=== PATIENT | female | born 1970 | race Caucasian/White ===

== ENCOUNTER 2017-08-05 19:53 | Emergency (ER) | payer OTHER ==
[2017-08-05 20:24] LABS: Appearance,Urine Clear (Clear); Bilirubin,Urine Negative (Negative); Blood,Urine Negative (Negative); Color,Urine Yellow; Glucose,Urine (UA) Negative (Negative); Ketones,Urine 3+ (Negative); Leukocyte Esterase,Urine Negative (Negative); Nitrite,Urine Negative (Negative); PH, Urine 6.5 (5.0-8.0); Protein,Urine Negative (Negative); Specific Gravity,Urine 1.016 (1.001-1.035); Urobilinogen,Urine <2.0 mg/dL (<2.0)
[2017-08-05] MEDS ORDERED: SODIUM CHLORIDE 0.9% 1,000 ML IV STA (20:28)
[2017-08-05] MEDS ORDERED: ONDANSETRON 4 MG/2 ML VIAL IVP STA (20:28)
[2017-08-05] MEDS ORDERED: DICYCLOMINE 10 MG/ML 2 ML AMP IM STA (20:28)
--- NOTE | 2017-08-05 20:34 | ED ---
Abdominal Pain HPI - General Chief Complaint: Abdominal Pain Stated Complaint: Abd pain Time Seen by Provider: 08/05/17 20:09 Source: patient Mode of arrival: ambulatory Limitations: no limitations - History of Present Illness Initial Comments: 47-year-old female patient presents to the emergency department today for evaluation of generalized abdominal pain and nausea. Patient states that the pain starts as a sharp cramp in her upper abdomen and spread downward. Patient states this started this morning when she woke from sleep. States that she did have one episode of vomiting around 9:00 in the morning. States that she has not had an appetite throughout the rest of the day. She denies any constipation or diarrhea. Denies any hematuria, dysuria, urinary frequency, or urinary urgency. She denies any hematemesis, hematochezia, or melena. Patient denies any ingestion of questionable foods. Denies recent travel or sick contacts. She denies any fever or chills. Patient denies any recent rash, shortness breath, chest pain, back pain, numbness, tingling, dizziness, weakness , headache, visual changes, or any other complaints. Patient did have her appendix out as a child. - Related Data Home Medications Medication Instructions Recorded Confirmed Bismuth Subsalicylate 524 mg PO ONCE PRN 08/05/17 08/05/17 [Pepto-Bismol] Kaopectate Liquid 1 dose PO ONCE PRN 08/05/17 08/05/17 Previous Rx's Medication Instructions Recorded Ondansetron [Zofran ODT] 4 mg PO Q8HR PRN #10 tab 08/05/17 Allergies Allergy/AdvReac Type Severity Reaction Status Date / Time Penicillins Allergy Unknown Verified 08/05/17 20:11 Sulfa (Sulfonamide Allergy Rash/Hives Verified 08/05/17 20:11 Antibiotics) Review of Systems ROS Statement: Those systems with pertinent positive or pertinent negative responses have been documented in the HPI. ROS Other: All systems not noted in ROS Statement are negative. Past Medical History Past Medical History: No Reported History History of Any Multi-Drug Resistant Organisms: None Reported Past Surgical History: No Surgical Hx Reported Past Psychological History: No Psychological Hx Reported Smoking Status: Current every day smoker Past Alcohol Use History: None Reported Past Drug Use History: None Reported General Exam Limitations: no limitations General appearance: alert, in no apparent distress, other (This is a well- developed, well-nourished adult female patient in no acute distress. Vital signs upon presentation are temperature 97.6F, pulse 69, respirations 18, blood pressure 133/72, pulse ox 99% on room air.) Eye exam: Present: normal appearance, PERRL, EOMI. Absent: scleral icterus, conjunctival injection, periorbital swelling ENT exam: Present: normal exam, normal oropharynx, mucous membranes moist Respiratory exam: Present: normal lung sounds bilaterally. Absent: respiratory distress, wheezes, rales, rhonchi, stridor Cardiovascular Exam: Present: regular rate, normal rhythm, normal heart sounds. Absent: systolic murmur, diastolic murmur, rubs, gallop, clicks GI/Abdominal exam: Present: soft, tenderness (lower abdominal tenderness), normal bowel sounds. Absent: distended, guarding, rebound, rigid Neurological exam: Present: alert, oriented X3, CN II-XII intact Psychiatric exam: Present: normal affect, normal mood Skin exam: Present: warm, dry, intact, normal color. Absent: rash Course Vital Signs 08/05/17 19:58 Temperature 97.6 F Pulse Rate 69 Respiratory 18 Rate Blood Pressure 133/72 O2 Sat by Pulse 99 Oximetry Medical Decision Making - Medical Decision Making 47-year-old female patient presented to the emergency department today for evaluation of generalized crampy abdominal pain. Physical examination was relatively unremarkable. Patient had some mild nonspecific generalized tenderness. Labs reviewed and are unremarkable. X-ray did show moderate stool burden extending throughout the colon down into the rectum. I did discuss findings and results with the patient. We did discuss constipation as a possible cause for her pain however we did discuss return parameters and red flag symptoms to be alert for. Patient be given a dose of magnesium citrate here. She'll be given Zofran for nausea. She is instructed to follow-up with her primary care physician for recheck in 1-2 days. Return parameters discussed in detail. She verbalizes understanding and agrees with this plan. - Lab Data Result diagrams: 08/05/17 20:50 08/05/17 20:50 Lab Results 08/05/17 08/05/17 08/05/17 Range/Units 20:05 20:50 20:50 WBC 8.9 (3.8-10.6) k/uL RBC 4.80 (3.80-5.40) m/uL Hgb 14.6 (11.4-16.0) gm/dL Hct 42.6 (34.0-46.0) % MCV 88.7 (80.0-100.0) fL MCH 30.5 (25.0-35.0) pg MCHC 34.4 (31.0-37.0) g/dL RDW 12.6 (11.5-15.5) % Plt Count 253 (150-450) k/uL Neutrophils % 80 % Lymphocytes % 14 % Monocytes % 3 % Eosinophils % 1 % Basophils % 0 % Neutrophils # 7.1 (1.3-7.7) k/uL Lymphocytes # 1.3 (1.0-4.8) k/uL Monocytes # 0.2 (0-1.0) k/uL Eosinophils # 0.1 (0-0.7) k/uL Basophils # 0.0 (0-0.2) k/uL Sodium 138 (137-145) mmol/L Potassium 4.3 (3.5-5.1) mmol/L Chloride 104 (98-107) mmol/L Carbon Dioxide 22 (22-30) mmol/L Anion Gap 12 mmol/L BUN 12 (7-17) mg/dL Creatinine 0.46 L (0.52-1.04) mg/dL Est GFR (CKD-EPI)AfAm >90 (>60 ml/min/1.73 sqM) Est GFR (CKD-EPI)NonAf >90 (>60 ml/min/1.73 sqM) Glucose 109 H (74-99) mg/dL Calcium 9.1 (8.4-10.2) mg/dL Total Bilirubin 0.7 (0.2-1.3) mg/dL AST 28 (14-36) U/L ALT 28 (9-52) U/L Alkaline Phosphatase 52 (38-126) U/L Total Protein 7.2 (6.3-8.2) g/dL Albumin 4.3 (3.5-5.0) g/dL Amylase 63 (30-110) U/L Lipase 70 (23-300) U/L Urine Color Yellow Urine Appearance Clear (Clear) Urine pH 6.5 (5.0-8.0) Ur Specific Carlotta 1.016 (1.001-1.035) Urine Protein Negative (Negative) Urine Glucose (UA) Negative (Negative) Urine Ketones 3+ H (Negative) Urine Blood Negative (Negative) Urine Nitrite Negative (Negative) Urine Bilirubin Negative (Negative) Urine Urobilinogen <2.0 (<2.0) mg/dL Ur Leukocyte Esterase Negative (Negative) - Radiology Data Radiology results: report reviewed, image reviewed Two-view x-ray of the abdomen was obtained. Findings show lung bases are clear. No evidence of or free intraperitoneal air. No dilated small bowel or air-fluid levels. Scattered air and stool seen throughout the colon extending distally into the rectum. There is moderate stool burden. No suspicious calcifications identified. Impression by Dr. Crane shows moderate stool burden. No evidence or bulb suction or free intraperitoneal air. Disposition Clinical Impression: Abdominal pain Disposition: HOME SELF-CARE Condition: Good Instructions: Abdominal Pain (ED) Additional Instructions: Increase fluids. Take medications as directed. Follow-up with her primary care physician for recheck in 1-2 days. Return here immediately for any new, worsening, or concerning symptoms. Prescriptions: Ondansetron [Zofran ODT] 4 mg PO Q8HR PRN #10 tab PRN Reason: Nausea Is patient prescribed a controlled substance at d/c from ED?: No Referrals: Cj Álvarez MD [Primary Care Provider] - 1-2 days Time of Disposition: 22:08
[2017-08-05 20:58] LABS: Basophils % (A) 0 %; Eosinophils # (A) 0.1 k/uL (0-0.7); Eosinophils % (A) 1 %; HCT 42.6 % (34.0-46.0); HGB 14.6 gm/dL (11.4-16.0); Lymphocytes # (A) 1.3 k/uL (1.0-4.8); Lymphocytes % (A) 14 %; MCH 30.5 pg (25.0-35.0); MCHC 34.4 g/dL (31.0-37.0); MCV 88.7 fL (80.0-100.0); Mean Platelet Volume 6.5; Monocytes # (A) 0.2 k/uL (0-1.0); Monocytes % (A) 3 %; Neutrophils # (A) 7.1 k/uL (1.3-7.7); Neutrophils % (A) 80 %; Platelet Count 253 k/uL (150-450); RDW 12.6 % (11.5-15.5); WBC 8.9 k/uL (3.8-10.6)
[2017-08-05 21:12] LABS: ALT 28 U/L (9-52); AST 28 U/L (14-36); Albumin 4.3 g/dL (3.5-5.0); Alkaline Phosphatase 52 U/L (38-126); Amylase 63 U/L (30-110); Anion Gap 12 mmol/L; Blood Urea Nitrogen 12 mg/dL (7-17); Calcium 9.1 mg/dL (8.4-10.2); Carbon Dioxide 22 mmol/L (22-30); Chloride 104 mmol/L (98-107); Glucose 109 mg/dL (74-99); Lipase 70 U/L (23-300); Potassium 4.3 mmol/L (3.5-5.1); Sodium 138 mmol/L (137-145); Total Bilirubin 0.7 mg/dL (0.2-1.3); Total Protein 7.2 g/dL (6.3-8.2)
--- NOTE | 2017-08-05 21:14 | XR ---
EXAMINATION TYPE: XR KUB DATE OF EXAM: 08/05/2017 CLINICAL DATA: 47-year-old female with abdominal pain, [facility] COMPARISON: None FINDINGS: Lung bases are clear. No evidence for free intraperitoneal air. No dilated small bowel or air-fluid levels. Scattered air and stool seen throughout the colon extendi ng distally into the rectum. There is moderate stool burden. No suspicious calcifications identified. IMPRESSION: 1. Moderate stool burden. 2.No evidence of bowel obstruction or free intraperitoneal air.
[2017-08-05] MEDS ORDERED: ONDANSETRON 4 MG ODT STARTER PACK 2 TAB BTL PO STA (22:08)
[2017-08-05] MEDS ORDERED: ONDANSETRON ODT 4 MG TAB PO STA (22:08)
[2017-08-05] MEDS ORDERED: MAGNESIUM CITRATE 296 ML BOTTLE PO ONE (22:12)
[2017-08-05 22:36] VITALS: BP 138/70; PULSE 74; RESP 16; TEMP 98
== END 2017-08-05 22:36 | disposition home or self-care (01) ==
LOC: EC 19:53
DX: R10.84 Generalized abdominal pain (principal); R11.2 Nausea with vomiting, unspecified; F17.200 Nicotine dependence, unspecified, uncomplicated; Z88.0 Allergy status to penicillin; Z88.2 Allergy status to sulfonamides
CPT/HCPCS: 36415; 80053; 82150; 83690; 85025; 81003; 74018; 99284; 96374; 96361; 96372; J0500; J2405; S0119

== ENCOUNTER → 2018-04-24 | Outpatient (CLI) | payer OTHER ==
--- NOTE | 2018-04-25 09:46 | MM ---
Reason for exam: screening (asymptomatic). Last mammogram was performed 2 years and 2 months ago. History: Patient is postmenopausal. Family history of breast cancer in maternal aunt. Retro-pectoral saline implants in both breasts, October 2006. Took hormonal contraceptives for 7 years beginning at age 26. Physical Findings: A clinical breast exam by your physician is recommended on an annual basis and results should be correlated with mammographic findings. MG Screening Mammo Implant/CAD Bilateral CC, MLO, and ID view(s) were taken. Prior study comparison: February 20, 2016, bilateral MG 3d screen mammo imp/cad. May 22, 2013, bilateral digital screening mammo w/CAD. The breast tissue is heterogeneously dense. This may lower the sensitivity of mammography. Bilateral implants are intact. No significant changes when compared with prior studies. ASSESSMENT: Negative, BI-RAD 1 RECOMMENDATION: Routine screening mammogram of both breasts in 1 year.
== END | disposition home or self-care (01) ==
LOC: RADMAMWWP 07:00
PROVIDERS: ATTEND Obstetrics & Gynecology
DX: Z12.31 Encounter for screening mammogram for malignant neoplasm of breast (principal); Z98.82 Breast implant status
CPT/HCPCS: 77067

== ENCOUNTER → 2022-01-22 | Outpatient (CLI) | payer OTHER ==
--- NOTE | 2022-01-25 08:19 | MM ---
Reason for Exam: Screening (asymptomatic). Last mammogram was performed 3 year(s) and 9 month(s) ago. Patient History: Menarche at age 12. First Full-Term at age 26. Postmenopausal. Hormonal Contraceptives for 7 years from age 26 until age 34. 10/2006, Bilateral Implants. Maternal aunt had breast cancer. Risk Values: Analy 5 year model risk: 1.2%. NCI Lifetime model risk: 9.6%. Prior Study Comparison: 05/22/2013 Bilateral Screening Mammogram, [facility]. 02/20/2016 Bilateral Screening Mammogram, [facility]. 04/24/2018 Bilateral Screening Mammogram, [facility]. Tissue Density: The breast tissue is heterogeneously dense. This may lower the sensitivity of mammography. Findings: Analyzed By CAD. No new suspicious mass in either breast. Bilateral breast implants. Punctate group of calcifications within the upper outer right breast posterior depth. Overall Assessment: Incomplete: need additional imaging evaluation, BI-RAD 0 Management: Diagnostic Mammogram of the right breast. A clinical breast exam by your physician is recommended on an annual basis and results should be correlated with mammographic findings. [facility] will attempt to contact patient to return for supplemental views and ultrasound if indicated. Electronically signed and approved by: Severiano Martinez D.O.
== END | disposition home or self-care (01) ==
LOC: RADMAMWWP 07:40
PROVIDERS: ATTEND Internal Medicine
DX: Z12.31 Encounter for screening mammogram for malignant neoplasm of breast (principal); Z78.0 Asymptomatic menopausal state; Z80.3 Family history of malignant neoplasm of breast; Z98.890 Other specified postprocedural states
CPT/HCPCS: 77063; 77067

== ENCOUNTER → 2022-01-28 | Outpatient (CLI) | payer OTHER ==
--- NOTE | 2022-01-28 14:48 | MM ---
Reason for Exam: Additional evaluation requested from abnormal screening. Last screening mammogram was performed less than 1 month ago. Patient History: Menarche at age 12. First Full-Term at age 26. Postmenopausal. Hormonal Contraceptives for 7 years from age 26 until age 34. 10/2006, Bilateral Implants. Maternal aunt had breast cancer. Risk Values: Analy 5 year model risk: 1.2%. NCI Lifetime model risk: 9.6%. Tissue Density: Right: The breast tissue is extremely dense which could obscure a lesion on mammography. Findings: Analyzed By CAD. There are multiple fine calcifications in the upper outer aspect mid right breast. Stereotactic core biopsy is recommended. Overall Assessment: Suspicious, BI-RAD 4 Management: Stereotactic Core Biopsy of the right breast. A clinical breast exam by your physician is recommended on an annual basis and results should be correlated with mammographic findings. This exam should not preclude additional follow-up of suspicious palpable abnormalities. Results were given to the patient verbally at the time of exam. Electronically signed and approved by: Chapin Lynn D.O. Radiologis
== END | disposition home or self-care (01) ==
LOC: RADMAMWWP 10:13
PROVIDERS: ATTEND Internal Medicine
DX: R92.8 Other abnormal and inconclusive findings on diagnostic imaging of breast (principal); Z78.0 Asymptomatic menopausal state; Z80.3 Family history of malignant neoplasm of breast
CPT/HCPCS: 77061; 77065

== ENCOUNTER → 2022-02-04 | Day surgery (SDC) | payer OTHER ==
--- NOTE | 2022-02-10 08:40 | MM ---
Risk Values: Analy 5 year model risk: 1.2%. NCI Lifetime model risk: 9.6%. Prior Study Comparison: 04/24/2018 Bilateral Screening Mammogram, [facility]. 01/22/2022 Bilateral MG 3D screen mammo imp/cad., [facility]. 01/28/2022 Right MG 3D work up w/cad RT, [facility]. Pathology Description: Location: upper outer quadrant, middle. Approach: Lateral to Medial Needle Type: Eviva Cores: 7 Skin Nicks: 1 Gauge: 9 deployed trimark it failed we used securemark The procedure of stereotactic guided core biopsy was explained to the patient. Benefits, alternatives, and risks were discussed. An informed consent was then obtained. The [facility] pathway for biopsy was chosen. Shortness pathway was a lateral approach. I performed the localization followed by the remainder of the procedure. A vacuum assisted biopsy gun was used to obtain 7 core samples. Initial attempt at placement of a Trimark clip failed. It was retained within the plastic cannula. Successful subsequent deployment of a Securemark clip. The patient tolerated the procedure well without any immediate complication. The patient was kept in the radiology department for short stay after the procedure and then discharged home in stable condition. Targeted calcifications are identified in specimen mammogram. Post biopsy mammogram shows 1 cm of lateral clip migration. Residual microcalcifications are present. IMPRESSION: SUCCESSFUL, UNCOMPLICATED STEREOTACTIC GUIDED CORE BIOPSY OF SUSPICIOUS MICROCALCIFICATIONS POSTERIOR UPPER OUTER QUADRANT RIGHT BREAST. NOTE 1 CM OF LATERAL CLIP MIGRATION. RESIDUAL MICROCALCIFICATIONS ARE PRESENT. Pathology Results: Result: High risk, Flat epithelial atypia. RIGHT BREAST, STEREOTACTIC CORE BIOPSY: Flat epithelial atypia (FEA) and sclerosing adenosis with calcifications in a background of fibrocystic changes. See note. Overall Assessment: High risk Management: Surgical Consultation of the right breast. Electronically signed and approved by: Zenaida Crane M.D. Radiologist
== END ==
LOC: RADMAMWWP 09:54
PROVIDERS: ATTEND Internal Medicine
DX: N60.21 Fibroadenosis of right breast (principal)
CPT/HCPCS: 88305; 88342; 88341; 19081; A4648

== ENCOUNTER → 2022-02-16 | Outpatient (CLI) | payer OTHER ==
[2022-02-16 07:30] VITALS: BP 120/79; PULSE 78; RESP 16; TEMP 98.3
--- NOTE | 2022-02-16 08:05 | P.GSHP ---
History of Present Illness H&P Date: 02/16/22 Chief Complaint: Flat epithelial atypia right breast Madeline is a 51 year old white female seen in consultation for Dr. Jasmine regarding a stereotactic core biopsy in the right breast which revealed flat epithelial atypia. She underwent a bilateral mammogram on 114 which revealed an area of concern in the right breast. No lesions of concern were seen in the left breast. A diagnostic right breast mammogram was performed on which confirmed the area of concern in the right breast. Stereotactic core biopsy was performed on [id number] of the right breast. Pathology revealed flat epithelial atypia. The lesion of concern was adequately targeted. The tamir mogram was a screening mammogram. She tolerated this stereotactic core biopsy without difficulty. She has bilateral breast implants the area beneath the pectoralis muscle and the saline, she has had no difficulty with these. She has never had other breast surgeries or biopsies. She is not complaining of any recent trauma or infection in the breast. She is not complaining of any abnormal nipple discharge or skin changes. Caffeine: 2 cups coffee/day nicotine: 2-4 cigarettes per day, used to smoke 1 PPD/20 years slowed down 1 month ago chocolate: twice a week BCP: 15 years; stopped about age 34 hormones: none Family History: none for cancer Hormonal History: menarche: 12 , age at : 25, breast fed: no menopuase: 44 Surgical Hstory: bilateral breast implants bottle cap removed from lungs appy Medical History: none Social History: nicotine: 2-4 cigarettes per day, used to smoke 1 PPD/20 years slowed down 1 month ago alcohol: none drugs: none - Constitutional Constitutional: Denies chills, Denies fever - EENT Comment: glaucoma; has had left eye laser Eyes: denies blurred vision, denies pain Ears: deny: decreased hearing, tinnitus Ears, nose, mouth and throat: Denies headache, Denies sore throat - Breasts Breasts: bilateral: as per HPI - Cardiovascular Cardiovascular: Denies chest pain, Denies shortness of breath - Respiratory Respiratory: Reports as per HPI, Denies cough - Gastrointestinal Gastrointestinal: Denies abdominal pain, Denies diarrhea, Denies nausea, Denies vomiting - Genitourinary (Female) Genitourinary: Denies dysuria, Denies hematuria - Menstruation Menstruation: Reports postmenopausal - Musculoskeletal Musculoskeletal: Denies myalgias - Integumentary Integumentary: Denies pruritus, Denies rash - Neurological Neurological: Denies numbness, Denies weakness - Psychiatric Psychiatric: Denies anxiety, Denies depression - Endocrine Endocrine: Denies fatigue, Denies weight change - Hematologic/Lymphatic Comment: none - Allergic/Immunologic Allergic/Immunologic: Reports seasonal allergies Past Medical History Past Medical History: No Reported History History of Any Multi-Drug Resistant Organisms: None Reported Past Surgical History: Appendectomy Additional Past Surgical History / Comment(s): Bilat breast implants. Past Anesthesia/Blood Transfusion Reactions: Postoperative Nausea & Vomiting (PONV) Past Psychological History: No Psychological Hx Reported Smoking Status: Current every day smoker Past Alcohol Use History: None Reported Additional Past Alcohol Use History / Comment(s): 2-4 cigarettes daily Past Drug Use History: None Reported Medications and Allergies Home Medications Medication Instructions Recorded Confirmed Type Cholecalciferol (Vitamin D3) 125 mcg PO DAILY 01/28/22 02/16/22 History [Vitamin D3 (125 MCG = 5,000 IU)] Allergies Allergy/AdvReac Type Severity Reaction Status Date / Time Penicillins Allergy Unknown Verified 02/16/22 07:31 Sulfa (Sulfonamide Allergy Rash/Hives Verified 02/16/22 07:31 Antibiotics) Surgical - Exam Vital Signs Temp Pulse Resp BP Pulse Ox 98.3 F 78 16 120/79 98 02/16/22 07:27 02/16/22 07:27 02/16/22 07:27 02/16/22 07:27 02/16/22 07:27 BMK: 21.8 - General no distress - Eyes normal ocular movement - ENT no hearing loss, no congestion - Neck trachea midline - Respiratory normal respiratory effort, clear to auscultation - Cardiovascular Rhythm: regular Heart Sounds: normal: S1, S2 - Abdomen Abdomen: soft, non tender, no guarding, no rigid, no rebound - Integumentary normal turgor - Neurologic no disoriented, no combative - Musculoskeletal normal gait, normal posture - Psychiatric oriented to time, oriented to person, oriented to place, speech is normal, memory intact Breast Exam: BRA: 36B inspection: Bilateral grade 1 ptosis Palpation: Right breast: Multi-positional exam fibrocystic changes, implant in place, scar from recent stereo biopsy with some mild changes near the site otherwise no dominant masses or nodules of concern Right axilla: No adenopathy of concern Left breast: Multi-positional exam fibrocystic changes, implant in place, scar from implant placement Left axilla: No adenopathy of concern Results Mammogram reviewed with Dr. Lynn, dense breasts, area of microcalcifications reviewed and stereotactic specimen reviewed Pathology: Flat epithelial atypia Assessment and Plan Assessment: Impression: 1. Flat epithelial atypia right breast on stereotactic core biopsy 2. Fibrocystic breast changes 3. Bilateral subpectoral silicone implants Plan: 1. Needle localization right breast lumpectomy, possible onco-plastic tissue transfer no mastopexy incision. CC: Dr. Jasmine
== END ==
LOC: WWCWWP 07:20
PROVIDERS: ATTEND Surgery
DX: N60.21 Fibroadenosis of right breast (principal); N60.19 Diffuse cystic mastopathy of unspecified breast; Z98.82 Breast implant status; Z88.0 Allergy status to penicillin; Z88.2 Allergy status to sulfonamides; F17.200 Nicotine dependence, unspecified, uncomplicated

== ENCOUNTER 2022-02-23 08:12 | Day surgery (SDC) | payer OTHER ==
[2022-02-19 11:44] VITALS: BMI 21.9
[~2022-02-23 08:12] MED LIST: DEXAMETHASONE SOD PHOSPHATE 4 MG/ML 1 ML VIAL IV ONE; HEPARIN SODIUM,PORCINE/PF 5,000 UNIT/0.5 ML SYRINGE SQ PRN; HYDROmorphone 0.5 MG/0.5 ML SYRINGE IVP PRN; LACTATED RINGERS 1,000 ML IV SCH; ONDANSETRON 4 MG/2 ML VIAL IVP ONE; Pre Op ABX Message 1 EACH MISC MISCELLANE ONE
[2022-02-23] MEDS ORDERED: ALPRAZolam 0.5 MG TAB ONE (08:50)
[2022-02-23] MEDS ORDERED: ALPRAZolam 0.5 MG TAB PO ONE (08:51)
[2022-02-23] MEDS ORDERED: LIDOCAINE 1% INJ 10MG/ML (30 ML VIAL-PF) SQ ONE (09:37)
[2022-02-23 09:40] VITALS: RESP 16
[2022-02-23] MEDS ORDERED: fentaNYL (PF) 50 MCG/ML 2 ML AMP ONE (11:47)
[2022-02-23] MEDS ORDERED: PROPOFOL 10 MG/ML 20 ML VIAL IV ONE (11:47)
[2022-02-23] MEDS ORDERED: MIDAZOLAM 2 MG/2 ML VIAL ONE (11:47)
[2022-02-23] MEDS ORDERED: LIDOCAINE 2% INJ 20 MG/ML (2 ML VIAL) ONE (11:47)
[2022-02-23] MEDS ORDERED: SODIUM CHLORIDE 0.9% 100 ML with CLINDAMYCIN 600 MG/50 ML-D5W 600 MG IV ONE ×2 (11:58)
--- NOTE | 2022-02-23 13:18 | P.OP ---
Date of Procedure: 02/23/22 Preoperative Diagnosis: Flat epithelial atypia right breast core biopsy Postoperative Diagnosis: Same Procedure(s) Performed: Right breast needle localization lumpectomy Anesthesia: TENAA Surgeon: Kati Marks Estimated Blood Loss (ml): 5 IV fluids (ml): 700 Pathology: other (Breast tissue) Condition: stable Disposition: same day Indications for Procedure: Core biopsy right breast flat epithelial atypia Operative Findings: Very dense breast tissue Description of Procedure: The patient was seen and evaluated preoperatively and it was felt that there was clip migration from the area of stereotactic core biopsy. This was reviewed with the radiologist. The area of concern appeared to be an area of persistent microcalcifications at the tip of the needle localization. Needle localization of the area of concern was performed in the radiology suite pre-procedure. The patient was brought to the operative suite. Following induction of anesthesia the right breast was prepped and draped in a sterile fashion. An incision was made and carried down to the shaft of the needle. Surrounding tissue was excised. The specimen was painted for orientation. A radiograph of the specimen revealed what was believed to be the microcalcifications of concern but the clip was not in the specimen. This was personally reviewed with the radiologist. Additional tissue was obtained. Additional microcalcifications in the vicinity were identified but the clip was not seen. At this point it was felt that the procedure could be terminated as the area of concern of microcalcifications were noted, however the clip again was not in the specimen. The area of concern was felt to have been adequately sampled. The dissection had been down to the area of the pectoralis muscle and was in the region of the capsule of the implant. After we were assured that hemostasis was attained a titanium clip was placed. The deep tissues were closed using 3-0 Vicryl suture. The superficial tissues were closed using 4-0 Monocryl. Steri-Strips were applied. The patient tolerated procedure in stable condition.
--- NOTE | 2022-02-23 13:20 | P.DS ---
Providers Attending physician: Kati Marks Primary care physician: Gregg Jasmine Plan - Discharge Summary Discharge Rx Participant: No New Discharge Prescriptions: No Action Nicotine 21Mg/24Hr Patch [Habitrol] 1 each TRANSDERM DAILY Cholecalciferol (Vitamin D3) [Vitamin D3 (125 MCG = 5,000 IU)] 125 mcg PO DAILY Discharge Medication List Cholecalciferol (Vitamin D3) [Vitamin D3 (125 MCG = 5,000 IU)] 125 mcg PO DAILY 01/28/22 [History] Nicotine 21Mg/24Hr Patch [Habitrol] 1 each TRANSDERM DAILY 02/19/22 [History] Follow up Appointment(s)/Referral(s): Kati Marks MD [STAFF PHYSICIAN] - 03/05/22 8:40 am Activity/Diet/Wound Care/Special Instructions: do not drive for 48 hours from discharge, do not drive if taking narcotic pain medicine may shower after 48 hours wear bra at all times Discharge Disposition: HOME SELF-CARE
[2022-02-23 13:29] VITALS: TEMP 97.4
[2022-02-23 14:43] VITALS: BP 109/70; PULSE 64
--- NOTE | 2022-03-01 08:35 | MM ---
Risk Values: Analy 5 year model risk: 1.4%. NCI Lifetime model risk: 11.2%. Prior Study Comparison: 04/24/2018 Bilateral Screening Mammogram, [facility]. 01/22/2022 Bilateral MG 3D screen mammo imp/cad., [facility]. 01/28/2022 Right MG 3D work up w/cad RT, [facility]. Pathology Description: Location: upper outer quadrant. Approach: Lateral to Medial Skin Nicks: 1 The procedure of needle localization with wire placement and than surgical excision was explained to the patient. Benefits, alternatives, and risks were discussed. An informed consent was then obtained. The shortest pathway for procedure was chosen. Shortest pathway was lateral approach. The overlying skin was prepped and draped in usual sterile fashion. Lidocaine was used as anesthetic into the skin and subcutaneous tissue up to the level of area of concern. A 5 cm needle was used. It was placed via a lateral approach under mammographic guidance. Subsequent 90 degrees mammogram show the needle to be in satisfactory position relative to the targeted area. At this point, wire was placed and the needle was withdrawn. The wire was fixed to patient's skin. Images were marked for surgeon. The patient tolerated the procedure well without any immediate complication. The patient was kept in the radiology department for short stay after the procedure and then taken to surgery for surgical excision. Targeted calcifications and wire are identified in specimen mammogram. Biopsy clip is not demonstrated within the calcifications but has migrated on post stereotactic biopsy. The patient was kept in hospital for short stay after the procedure and then discharged home in stable condition. Impression: Successful, uncomplicated needle localization with wire placement and surgical excision of suspicious group of calcifications in the right breast, full pathology results to follow. Pathology Results: Result: High risk, Flat epithelial atypia. A. RIGHT BREAST, NEEDLE LOCALIZATION EXCISION: Flat epithelial atypia (FEA/ADH) with calcifications adjacent to previous biopsy site, margins negative for atypia. Background fibrocystic changes including sclerosing adenosis with microcalcifications. B. RIGHT BREAST ADDITIONAL TISSUE, NEEDLE LOCALIZATION EXCISION: Benign breast with fibrocystic changes including focal fibroadenomatoid hyperplasia and sclerosing adenosis with microcalcifications. Overall Assessment: High risk Management: Diagnostic Mammogram of the right breast in 6 months. Electronically signed and approved by: Hugo Rea
== END 2022-02-23 14:53 | disposition home or self-care (01) ==
LOC: OR 08:12
PROVIDERS: ATTEND Surgery
DX: N60.21 Fibroadenosis of right breast (principal); K91.0 Vomiting following gastrointestinal surgery; F17.210 Nicotine dependence, cigarettes, uncomplicated; Z98.890 Other specified postprocedural states; Z79.899 Other long term (current) drug therapy
CPT/HCPCS: 19301; 88307; 76098; A4648; J2250; J1100; J2405; J2001 ×2; J3010; J2704; J1644

== ENCOUNTER → 2022-03-05 | Outpatient (CLI) | payer OTHER ==
[2022-03-05 08:44] VITALS: BP 100/57; PULSE 84; RESP 17; TEMP 98.3
--- NOTE | 2022-03-05 08:54 | P.PN ---
Progress Note - Text Progress Note Date: 03/05/22 Madeline is a 51 -year-old white female status post needle localization and right breast lumpectomy. Pathology revealed flat epithelial atypia. It also showed the old biopsy cavity. She tolerated the procedure without difficulty. Physical exam: Incision: Clean and dry Impression: Patient status post needle localization excisional lumpectomy right breast Plan: Repeat right breast mammogram in 6 months with physician exam at that time CC: Dr. Jasmine
== END ==
LOC: WWCWWP 08:33
PROVIDERS: ATTEND Surgery
DX: Z90.11 Acquired absence of right breast and nipple (principal); Z88.0 Allergy status to penicillin; Z88.2 Allergy status to sulfonamides; F17.200 Nicotine dependence, unspecified, uncomplicated

== ENCOUNTER → 2022-08-26 | Outpatient (CLI) | payer OTHER ==
--- NOTE | 2022-08-26 11:35 | MM ---
Reason for Exam: Follow-up at short interval from prior study. Last screening mammogram was performed 7 month(s) ago. Patient History: Menarche at age 12. First Full-Term at age 26. Postmenopausal. Hormonal Contraceptives for 7 years from age 26 until age 34. 02/23/2022, High risk MG pre op needle loc RT on the right side. 02/04/2022, High risk MG stereo VAD BX RT on the right side. 10/2006, Bilateral Implants. Risk Values: Analy 5 year model risk: 1.8%. NCI Lifetime model risk: 13.8%. Prior Study Comparison: 04/24/2018 Bilateral Screening Mammogram, [facility]. 01/22/2022 Bilateral MG 3D screen mammo imp/cad., [facility]. 01/28/2022 Right MG 3D work up w/cad RT, [facility]. Tissue Density: Right: The breast tissue is heterogeneously dense. This may lower the sensitivity of mammography. Findings: Analyzed By CAD. Retropectoral saline implant. Surgical clips posterior upper outer quadrant right breast from recent excision. No significant change from prior exams. Overall Assessment: Benign, BI-RAD 2 Management: Screening Mammogram of both breasts in 6 months. Results were given to the patient verbally at the time of exam. Patient should continue monthly self-breast exams. A clinical breast exam by your physician is recommended on an annual basis. This exam should not preclude additional follow-up of suspicious palpable abnormalities. Note on Analy scores and lifetime risk: 1. A Analy score greater than 3% is considered moderate risk. If this is the case, consider specialist referral to assess eligibility for a risk reducing agent. 2. If overall lifetime risk for the development of breast cancer is 20% or higher, the patient may qualify for future screening with alternating mammogram and breast MRI. Electronically signed and approved by: Zenaida Crane M.D. Radiologist
== END | disposition home or self-care (01) ==
LOC: RADMAMWWP 10:51
PROVIDERS: ATTEND Surgery
DX: R92.8 Other abnormal and inconclusive findings on diagnostic imaging of breast (principal); Z78.0 Asymptomatic menopausal state
CPT/HCPCS: 77061; 77065

== ENCOUNTER → 2023-06-23 | Outpatient (CLI) | payer OTHER ==
--- NOTE | 2023-06-24 12:15 | MM ---
Reason for Exam: Screening (asymptomatic). Last mammogram was performed 1 year(s) and 5 month(s) ago. Patient History: Menarche at age 12. First Full-Term at age 26. Postmenopausal. Hormonal Contraceptives for 7 years from age 26 until age 34. 02/23/2022, High risk MG pre op needle loc RT on the right side. 02/04/2022, High risk MG stereo VAD BX RT on the right side. 10/2006, Bilateral Implants. Risk Values: Analy 5 year model risk: 1.9%. NCI Lifetime model risk: 13.6%. Prior Study Comparison: 01/22/2022 Bilateral MG 3D screen mammo imp/cad., [facility]. 01/28/2022 Right MG 3D work up w/cad RT, [facility]. 08/26/2022 Right MG 3D diag mammo w/cad RT, [facility]. Tissue Density: The breasts are heterogeneously dense, which may obscure small masses. Findings: Analyzed By CAD. There is no suspicious group of microcalcifications or new suspicious mass in either breast. Bilateral saline implants are intact. Overall Assessment: Benign, BI-RAD 2 Management: Screening Mammogram of both breasts in 1 year. . Patient should continue monthly self-breast exams. A clinical breast exam by your physician is recommended on an annual basis. This exam should not preclude additional follow-up of suspicious palpable abnormalities. Note on Analy scores and lifetime risk: 1. A Analy score greater than 3% is considered moderate risk. If this is the case, consider specialist referral to assess eligibility for a risk reducing agent. 2. If overall lifetime risk for the development of breast cancer is 20% or higher, the patient may qualify for future screening with alternating mammogram and breast MRI. Electronically signed and approved by: Clayton Vivar M.D. Radiologis
--- NOTE | 2023-06-25 00:15 | MR ---
EXAMINATION TYPE: MR shoulder RT wo con DATE OF EXAM: 06/23/2023 COMPARISON: Non- HISTORY: Right shoulder pain and burning x3 months with difficulty raising arm overhead TECHNIQUE: Multiplanar, multisequence imaging of the right shoulder is performed without contrast. FINDINGS: Rotator Cuff: Intact supraspinatus and infraspinatus tendons. Intact subscapularis tendon. Rotator cu ff muscle bulk is preserved. Acromioclavicular Joint: Mild narrowing. No significant spurring. Glenohumeral Joint: Small to moderate size joint effusion. Some narrowing is present. No significant spurring. Labrum: Some increased signal superior labrum favors degenerative tearing. Biceps Tendon: The long head of biceps is in normal location within bicipital groove. Bone marrow signal: No focal abnormal marrow signal is appreciated. Other: No additional significant abnormality is appreciated. IMPRESSION: Probable degenerative tear superior labrum. No rotator cuff tear. Degenerative changes ar e present as detailed above.
== END | disposition home or self-care (01) ==
LOC: RADMAMWWP 14:53
PROVIDERS: ATTEND Internal Medicine
DX: Z12.31 Encounter for screening mammogram for malignant neoplasm of breast (principal); M25.511 Pain in right shoulder; Z78.0 Asymptomatic menopausal state; Z98.82 Breast implant status
CPT/HCPCS: 77063; 77067

== ENCOUNTER → 2023-07-08 | Outpatient (CLI) | payer OTHER ==
--- NOTE | 2023-07-08 12:39 | P.PN ---
Subjective Progress Note Date: 07/08/23 Principal diagnosis: flat epithleal atypia 07-08-23 Flat epithelial atypia right breast Madeline is a 53 year old white female seen in consultation for Dr. Jasmine regarding a stereotactic core biopsy in the right breast which revealed flat epithelial atypia. She underwent a bilateral mammogram on which revealed an area of concern in the right breast. No lesions of concern were seen in the left breast. A diagnostic right breast mammogram was performed on which confirmed the area of concern in the right breast. Stereotactic core biopsy was performed on [id number] of the right breast. Pathology revealed flat epithelial atypia. The lesion of concern was adequately targeted. The mammogram was a screening mammogram. She tolerated this stereotactic core biopsy without difficulty. She has bilateral breast implants they are beneath the pectoralis muscle and saline, she has had no difficulty with these. She is not complaining of any recent trauma or infection in the breast. She is not complaining of any abnormal nipple discharge or skin changes. The patient on underwent needle localization and excision of this area in the operating room. Pathology revealed flat epithelial atypia. She underwent a right breast mammogram on 6822 which was benign BIRADS 2. This was personally reviewed. She is not complaining of any new lumps masses or nodules of concern in either breast. We'll discuss chemo reduction secondary to her Analy risk being 1.8% and the fact that she has had flat epithelial atypia and she has declined. bilateral mammogram on 06-23-23 BIRAD 2 She is not complaining of any new lumps masses or nodules of concern in either breast. Analy risk 5 years: 1.9% NCI lifetime risk 13.6% We have discussed chemoprophylaxis in the past and she is not interested. Caffeine: 2 cups coffee/day nicotine: 2-4 cigarettes per day, used to smoke 1 PPD/20 years slowed down 1 month ago chocolate: twice a week BCP: 15 years; stopped about age 34 hormones: none Family History: none for cancer Hormonal History: menarche: 12 , age at : 25, breast fed: no menopuase: 44 Surgical Hstory: bilateral breast implants bottle cap removed from lungs appy breast biopsy right breast Medical History: started wellbutrin to try to stop smoking Social History: nicotine: 2-4 cigarettes per day, used to smoke 1 PPD/20 years slowed down 1 month ago alcohol: none drugs: none - Constitutional Constitutional: Denies chills, Denies fever - EENT Comment: glaucoma; has had left eye laser Eyes: denies blurred vision, denies pain Ears: deny: decreased hearing, tinnitus Ears, nose, mouth and throat: Denies headache, Denies sore throat - Breasts Breasts: bilateral: as per HPI - Cardiovascular Cardiovascular: Denies chest pain, Denies shortness of breath - Respiratory Respiratory: Reports as per HPI, Denies cough - Gastrointestinal Gastrointestinal: Denies abdominal pain, Denies diarrhea, Denies nausea, Denies vomiting - Genitourinary (Female) Genitourinary: Denies dysuria, Denies hematuria - Menstruation Menstruation: Reports postmenopausal - Musculoskeletal Musculoskeletal: Denies myalgias - Integumentary Integumentary: Denies pruritus, Denies rash - Neurological Neurological: Denies numbness, Denies weakness - Psychiatric Psychiatric: Denies anxiety, Denies depression - Endocrine Endocrine: Denies fatigue, Denies weight change - Hematologic/Lymphatic Comment: none - Allergic/Immunologic Allergic/Immunologic: Reports seasonal allergies Past Medical History Past Medical History: No Reported History History of Any Multi-Drug Resistant Organisms: None Reported Past Surgical History: Appendectomy Additional Past Surgical History / Comment(s): Bilat breast implants. Past Anesthesia/Blood Transfusion Reactions: Postoperative Nausea & Vomiting (PONV) Past Psychological History: No Psychological Hx Reported Smoking Status: Current every day smoker Past Alcohol Use History: None Reported Additional Past Alcohol Use History / Comment(s): 2-4 cigarettes daily Past Drug Use History: None Reported Medications and Allergies Home Medications Medication Instructions Recorded Confirmed Type Cholecalciferol (Vitamin D3) 125 mcg PO DAILY 01/28/22 02/16/22 History [Vitamin D3 (125 MCG = 5,000 IU)] Allergies Allergy/AdvReac Type Severity Reaction Status Date / Time Penicillins Allergy Unknown Verified 02/16/22 07:31 Sulfa (Sulfonamide Allergy Rash/Hives Verified 02/16/22 07:31 Antibiotics) Objective - Constitutional General appearance: Present: cooperative - EENT Eyes: Present: EOMI ENT: Present: hearing grossly normal - Neck Neck: Present: normal ROM - Respiratory Respiratory: bilateral: CTA - Cardiovascular Rhythm: regular Heart sounds: normal: S1, S2 - Integumentary Integumentary: Present: normal turgor - Musculoskeletal Musculoskeletal: Present: gait normal - Psychiatric Psychiatric: Present: A&O x's 3, appropriate affect, intact judgment & insight - Additional findings Additional findings: Breast Exam: BRA: 36B inspection: Bilateral grade 1 ptosis Palpation: Right breast: Multi-positional exam fibrocystic changes, implant in place, scar from recent stereo biopsy with some mild changes near the site otherwise no dominant masses or nodules of concern Right axilla: No adenopathy of concern Left breast: Multi-positional exam fibrocystic changes, implant in place, scar from implant placement Left axilla: No adenopathy of concern Assessment and Plan Assessment: Impression: Prior right breast flat epithelial atypia/excised bilateral mammogram 06-23-23 BIRAD 2 Plan: Bilateral mammogram June 2024 with appointment at that time CC: Dr. Jasmine
[2023-07-08 12:55] VITALS: BP 129/75; PULSE 82; RESP 17; TEMP 98
== END ==
LOC: WWCWWP 11:30
PROVIDERS: ATTEND Surgery
DX: Z12.31 Encounter for screening mammogram for malignant neoplasm of breast (principal); R92.8 Other abnormal and inconclusive findings on diagnostic imaging of breast; N60.89 Other benign mammary dysplasias of unspecified breast; F17.210 Nicotine dependence, cigarettes, uncomplicated; Z88.0 Allergy status to penicillin; Z88.2 Allergy status to sulfonamides

== ENCOUNTER → 2024-08-02 | Outpatient (CLI) | payer OTHER ==
--- NOTE | 2024-08-02 10:23 | MM ---
Reason for Exam: Screening (asymptomatic). Last mammogram was performed 1 year(s) and 1 month(s) ago. Patient History: Menarche at age 12. First Full-Term at age 26. Postmenopausal. Hormonal Contraceptives for 7 years from age 26 until age 34. 02/23/2022, High risk MG pre op needle loc RT on the right side. 02/04/2022, High risk MG stereo VAD BX RT on the right side. 10/2006, Bilateral Implants. Risk Values: Analy 5 year model risk: 2.0%. NCI Lifetime model risk: 13.3%. Physical Findings: Physical Exam Performed Before Images Prior Study Comparison: 01/28/2022 Right MG 3D work up w/cad RT, [facility]. 08/26/2022 Right MG 3D diag mammo w/cad RT, [facility]. 06/23/2023 Bilateral MG 3D screen mammo imp/cad., [facility]. Tissue Density: The breasts are heterogeneously dense, which may obscure small masses. Findings: Analyzed By CAD. Bilateral subpectoral breast implants are redemonstrated. There is no suspicious group of microcalcifications or new suspicious mass in either breast. Overall Assessment: Benign, BI-RAD 2 Management: Screening Mammogram of both breasts in 1 year. . Patient should continue monthly self-breast exams. A clinical breast exam by your physician is recommended on an annual basis. This exam should not preclude additional follow-up of suspicious palpable abnormalities. Note on Analy scores and lifetime risk: 1. A Analy score greater than 3% is considered moderate risk. If this is the case, consider specialist referral to assess eligibility for a risk reducing agent. 2. If overall lifetime risk for the development of breast cancer is 20% or higher, the patient may qualify for future screening with alternating mammogram and breast MRI. [facility], , 08/02/2024 10:20 AM. Electronically signed and approved by: Good Lancaster M.D.
== END | disposition home or self-care (01) ==
LOC: RADMAMWWP 09:50
PROVIDERS: ATTEND Surgery
DX: Z12.31 Encounter for screening mammogram for malignant neoplasm of breast (principal); R92.333 Mammographic heterogeneous density, bilateral breasts; Z98.82 Breast implant status; Z78.0 Asymptomatic menopausal state; Z92.0 Personal history of contraception
CPT/HCPCS: 77063; 77067